=== PATIENT | male | born 1980 | race Caucasian/White ===

== ENCOUNTER 2017-07-16 13:23 | Day surgery (SDC) | payer OTHER ==
[2017-07-16] MEDS ORDERED: BUPIVACAINE 0.25% (MPF) 30 ML INJ (15:15)
[2017-07-16] MEDS ORDERED: MIDAZOLAM 1 MG/ML 2 ML INJ (15:31)
[2017-07-16] MEDS: BUPIVACAINE 0.25% (MPF) 30 ML INJ INJ (16:07)
[2017-07-16] MEDS ORDERED: CEFAZOLIN 1 GM INJ (16:13)
[2017-07-16] MEDS ORDERED: LIDOCAINE 2% (SDV) 5 ML INJ (16:13)
[2017-07-16] MEDS ORDERED: PROPOFOL 20 ML (16:13)
[2017-07-16] MEDS ORDERED: ONDANSETRON 4 MG INJ (16:14)
[2017-07-16] MEDS ORDERED: HYDROCODONE/APAP (5/325) TAB PO (16:30)
[2017-07-16] MEDS: HYDROmorphONE (0.2 MG/ML) 10ML SYG IV (16:43)
[2017-07-16] MEDS ORDERED: HYDROmorphONE (0.2 MG/ML) 10ML SYG IV (17:00)
[2017-07-16] MEDS ORDERED: DIPHENHYDRAMINE 50 MG INJ IV (17:00)
[2017-07-16] MEDS ORDERED: ONDANSETRON 4 MG INJ IV (17:00)
[2017-07-16] MEDS ORDERED: FENTAnyl 50 MCG/ML VIAL IV (17:00)
[2017-07-16] MEDS ORDERED: MEPERIDINE 25 MG INJ IV (17:00)
== END 2017-07-16 18:06 | disposition home or self-care (01) ==
LOC: SDS 13:23
DX: D17.1 Benign lipomatous neoplasm of skin and subcutaneous tissue of trunk (principal); D17.24 Benign lipomatous neoplasm of skin and subcutaneous tissue of left leg; E78.5 Hyperlipidemia, unspecified; E66.9 Obesity, unspecified; Z68.28 Body mass index [BMI] 28.0-28.9, adult
CPT/HCPCS: 21931; 88307